=== PATIENT | female | born 1990 | race Caucasian/White ===

== ENCOUNTER 2020-08-10 12:39 | Emergency (ER) | payer OTHER, SELFPAY ==
[2020-08-10 12:44] VITALS: BP 153/57; PULSE 79; RESP 14; TEMP 37; O2SAT 100
[2020-08-10 12:51] VITALS: BP 153/57; PULSE 79; RESP 14; TEMP 37; O2SAT 100
--- NOTE | 2020-08-10 13:00 | ED.DENTAL ---
HPI - Dental/Oral General Chief complaint: Dental/Oral Stated complaint: tooth pain Time Seen by Provider: 08/10/20 12:57 Source: patient and RN notes reviewed Mode of arrival: ambulatory Limitations: no limitations History of Present Illness HPI Narrative: 30-year-old female presents with concern for lower dental pain. Reports she had a cat that fell off, taking most of the tooth with it . Reports there was no pain at that time, however in the last several days the area has become painful with swelling in the lower jaw/chin area. Reports she has been taking ibuprofen. Reports she called her dentist who will see her after she is started on antibiotic. MD Complaint: tooth pain Location: Tooth # (23) Related Data Home Medications Medication Instructions Recorded Confirmed esomeprazole magnesium [Nexium] 20 mg PO DAILY 08/10/20 08/10/20 Allergies Allergy/AdvReac Type Severity Reaction Status Date / Time No Known Allergies Allergy Verified 08/10/20 12:49 Review of Systems Review of Systems: Narrative: CONSTITUTIONAL: Denies malaise, chills, sweats, or fever. EYES: Denies visual changes ENT: Denies rhinorrhea, congestion, sinus pain, otalgia or sore throat. Reports left lower/frontal dental pain, jaw swelling CARDIOVASCULAR: Denies chest pain, palpitations, or edema. RESPIRATORY: Denies cough or dyspnea. GASTROINTESTINAL: Denies abdominal pain, nausea, vomiting SKIN: Denies rash or itching. MUSCULOSKELETAL: Denies myalgia. NEUROLOGIC: Denies headache. All systems reviewed & are unremarkable except as noted in HPI and below PMFSH Past Medical History Medical History (Updated 08/10/20 @ 13:06 by Екатерина Martinez NP) History of gastroesophageal reflux (GERD) Comments At time of signature, agree with nursing past medical, surgical, social and family history. There is no relevant family history pertinent to the presenting complaint Exam Narrative: Exam Narrative: GENERAL: Well-appearing, well-nourished, and in no acute distress. HEAD: Normocephalic, atraumatic. EYES: PERRLA, conjunctivae clear ENT: Nares clear. Mucous membranes moist. Oropharynx without erythema, edema or lesions. Tooth 23 broken, purulent socket noted. No periapical abscess noted NECK: Supple. CHEST: No respiratory distress. Speaks in full sentences. HEART: Regular rate and rhythm. SKIN: Warm, dry, no rash. NEURO: Alert and oriented x3. PSYCH: Normal mood and affect Course Course Emergency Course: Patient is aware of diagnosis, understands and agrees to treatment plan. Anticipatory guidance given. Patient agrees to follow-up as directed and is aware of reasons to seek care at the emergency department. Portions of this record may have been created with voice recognition software Vital Signs Vital signs: Vital Signs Temperature 98.6 F 08/10/20 12:44 Pulse Rate 79 08/10/20 12:44 Respiratory Rate 14 08/10/20 12:44 Blood Pressure 153/57 H 08/10/20 12:44 Pulse Oximetry 100 08/10/20 12:44 Temperature 98.6 F 08/10/20 12:51 Pulse Rate 79 08/10/20 12:51 Respiratory Rate 14 08/10/20 12:51 Blood Pressure 153/57 H 08/10/20 12:51 Pulse Oximetry 100 08/10/20 12:51 Reviewed. MDM - Dental/Oral MDM Narrative Medical decision making narrative: Patients pain and complaint coupled with physical findings are consistant with dentalgia. There are no focal signs of space occupying lesions that are compromising to the airway; no dysphagia, odynophagia, dysphonia, or dyspnea. No uvular deviation or soft palate edema. Patient is non-toxic appearing. The floor of the mouth is soft with no signs of Cecilio's Angina; no induration below mandible, no neck pain. Patient is without trismus or drooling and able to swallow secretions. Patient is felt appropriate for discharge home with dental follow up. Critical Care Time Critical Care Time Critical Care Time: No Discharge Plan Discharge Clinical Impression: Toothache
== END 2020-08-10 13:12 | disposition home or self-care (01) ==
PROVIDERS: Emergency Provider Nurse Practitioner
DX: K08.89 Other specified disorders of teeth and supporting structures (principal); K21.9 Gastro-esophageal reflux disease without esophagitis
CPT/HCPCS: 99213; G0463

== ENCOUNTER 2020-12-22 18:02 | Emergency (ER) | payer OTHER, SELFPAY ==
[2020-12-22 18:15] VITALS: BP 122/60; PULSE 75; RESP 20; TEMP 36.3; O2SAT 98
--- NOTE | 2020-12-22 18:26 | ED.DENTAL ---
HPI - Dental/Oral General Chief complaint: Dental/Oral Stated complaint: tooth infection Time Seen by Provider: 12/22/20 18:21 Source: patient and RN notes reviewed Mode of arrival: ambulatory Limitations: no limitations History of Present Illness HPI Narrative: Patient presents today for evaluation of her tooth. She was seen a few hours ago at the [facility] and was told that she has a dental infection and that she needed to get started on antibiotics. 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 This tooth needs to be pulled and she needs to be on antibiotics for several days prior to going for a return appointment to have the tooth pulled. She currently rates her pain 4/10. Pain has been present for 2 to 3 days. She has been applying Orajel with relief. Denies fever, shortness of breath, difficulty swallowing. MD Complaint: tooth pain Related Data Allergies Allergy/AdvReac Type Severity Reaction Status Date / Time No Known Allergies Allergy Verified 12/22/20 18:22 Review of Systems Review of Systems: Narrative: CONSTITUTIONAL: Denies body aches, fever, chills, or sweats. EYES: Denies visual changes, redness, or discharge. ENT: Denies rhinorrhea, congestion, sore throat, or otalgia.+ Tooth pain CARDIOVASCULAR: Denies chest pain, palpitations, or edema. RESPIRATORY: Denies cough or dyspnea. GASTROINTESTINAL: Denies abdominal pain, nausea, vomiting, or diarrhea. GENITOURINARY: Denies dysuria or hematuria. SKIN: Denies rash, itching, or wounds. MUSCULOSKELETAL: Denies back pain, joint pain, or myalgia. NEUROLOGIC: Denies headache, numbness, tingling, or weakness. PSYCH: Denies depression or anxiety. PMFSH Past Medical History Medical History History of gastroesophageal reflux (GERD) Comments At time of signature, I have reviewed and agree with nursing past medical, surgical, social and family history unless otherwise noted. Please see nursing chart for further information. There is no relevant family history pertinent to the presenting complaint Exam Narrative: Exam Narrative: GENERAL: Well-appearing, well-nourished, and in no acute distress. HEAD: Normocephalic, atraumatic. EYES: EOMI. No redness or drainage. Conjunctivae normal. ENT: Mucous membranes pink and moist. Nares clear. No rhinorrhea. Throat normal. Uvula midline. Dental decay. Tooth #22 is brown in color broken off the gumline. Surrounding gumline is mildly erythematous. NECK: Normal AROM. Supple. No lymphadenopathy. CHEST: No respiratory distress. Clear to auscultation. HEART: Regular rate and rhythm. No murmur appreciated. Normal peripheral pulses. EXTREMITIES: Normal range of motion. No edema. SKIN: Warm, dry, no rash. Capillary refill normal. Normal skin turgor. NEURO: No focal deficits. Alert and oriented x3. Gait steady. PSYCH: Normal affect. No signs of depression or anxiety. Course Vital Signs Vital signs: Vital Signs Temperature 97.3 F L 12/22/20 18:15 Pulse Rate 75 12/22/20 18:15 Respiratory Rate 20 12/22/20 18:15 Blood Pressure 122/60 12/22/20 18:15 Pulse Oximetry 98 12/22/20 18:15 Temperature 97.3 F L 12/22/20 18:15 Pulse Rate 75 12/22/20 18:15 Respiratory Rate 20 12/22/20 18:15 Blood Pressure 122/60 12/22/20 18:15 Pulse Oximetry 98 12/22/20 18:15 Reviewed. Pt has been instructed to follow up with her PCP regarding her elevated blood pressure today. MDM - Dental/Oral Differential Diagnosis Differential diagnosis: Likely gingival abscess, dental caries, toothache, dental abscess and fracture of tooth Critical Care Time Critical Care Time Critical Care Time: No Discharge Plan Discharge Clinical Impression: Dental abscess Patient Disposition: Home, Self-Care Condition: Stable Instructions: Antibiotic Form, Dental A
== END 2020-12-22 18:30 | disposition home or self-care (01) ==
PROVIDERS: Emergency Provider Nurse Practitioner; PCP Internal Medicine
DX: K04.7 Periapical abscess without sinus (principal); K21.9 Gastro-esophageal reflux disease without esophagitis
CPT/HCPCS: 99213; G0463

== ENCOUNTER 2021-04-28 16:05 | Emergency (ER) | payer OTHER, SELFPAY ==
--- NOTE | 2021-04-28 16:12 | ED.DENTAL ---
HPI - Dental/Oral General Chief complaint: Dental/Oral Stated complaint: tooth pain Time Seen by Provider: 04/28/21 16:12 Source: patient and RN notes reviewed Mode of arrival: ambulatory Limitations: no limitations History of Present Illness HPI Narrative: 30-year-old female presents with concern for left lower dental pain for several days. Reports he has a tooth that needs to be pulled, it is broken with cavities. She reports she has had problems with her teeth in the past, has had 2 teeth pulled over the last year. Reports she has an appointment with a dentist, however they suggested she be on antibiotics first. She denies any difficulty swallowing, fever. MD Complaint: tooth pain Related Data Home Medications Medication Instructions Recorded Confirmed esomeprazole magnesium [Nexium] 40 mg PO DAILY 04/28/21 04/28/21 sumatriptan succinate 50 mg PO ONCE PRN 04/28/21 04/28/21 Allergies Allergy/AdvReac Type Severity Reaction Status Date / Time No Known Allergies Allergy Verified 04/28/21 16:16 Review of Systems Review of Systems: CONSTITUTIONAL: Denies malaise, chills, sweats, or fever. ENT: Reports left lower dental pain CARDIOVASCULAR: Denies chest pain, palpitations, or edema. RESPIRATORY: Denies cough or dyspnea. NEUROLOGIC: Denies headache. PSYCHIATRIC: Denies anxiety or depression. All systems reviewed & are unremarkable except as noted in HPI and below PMFSH Past Medical History Medical History History of gastroesophageal reflux (GERD) Comments At time of signature, agree with nursing past medical, surgical, social and family history. There is no relevant family history pertinent to the presenting complaint Exam Narrative: GENERAL: Well-appearing, well-nourished, and in no acute distress. HEAD: Normocephalic, atraumatic. EYES: PERRLA, conjunctivae clear ENT: Nares clear. Mucous membranes moist. Oropharynx without edema, erythema or lesions. NECK: Supple. CHEST: No respiratory distress. Speaks in full sentences. HEART: Regular rate and rhythm. SKIN: Warm, dry, no rash. NEURO: Alert and oriented x3. PSYCH: Normal mood and affect Course Course Emergency Course: Patient is aware of diagnosis, understands and agrees to treatment plan. Anticipatory guidance given. Patient agrees to follow-up as directed and is aware of reasons to seek care at the emergency department. Portions of this record may have been created with voice recognition software Vital Signs Vital signs: Reviewed. MDM - Dental/Oral MDM Narrative Medical decision making narrative: Patients pain and complaint coupled with physical findings are consistant with dentalgia. There are no focal signs of space occupying lesions that are compromising to the airway; no dysphagia, odynophagia, dysphonia, or dyspnea. No uvular deviation or soft palate edema. Patient is non-toxic appearing. The floor of the mouth is soft with no signs of Cecilio's Angina; no induration below mandible, no neck pain. Patient is without trismus or drooling and able to swallow secretions. Patient is felt appropriate for discharge home with dental follow up. Critical Care Time Critical Care Time Critical Care Time: No Discharge Plan Discharge Clinical Impression: Toothache Patient Disposition: Home, Self-Care Condition: Stable Instructions: Antibiotic Form, Toothache (ED) Additional Instructions: Take antibiotic as directed Avoid temperature extremes May apply heat or ice to the face Gentle brushing and flossing Alternate Tylenol and ibuprofen as needed for pain Follow-up with the dentist as soon as possible Prescriptions: New clindamycin HCl 300 mg capsule 300 mg PO Q8H 7 Days Qty: 21 RF: 0 No Action esomeprazole magnesium [Nexium] 40 mg Capsule,Delayed Release(Dr/Ec) 40 mg PO DAILY RF: 0 sumatriptan succinate 50 mg Tablet 50 mg PO ONCE PRN (Reason: Migra
[2021-04-28 16:13] VITALS: BP 127/76; PULSE 80; RESP 20; TEMP 36.6; O2SAT 100
[2021-04-28 16:20] VITALS: BP 127/76; PULSE 80; RESP 20; TEMP 36.6; O2SAT 100
== END 2021-04-28 16:23 | disposition home or self-care (01) ==
PROVIDERS: Emergency Provider Nurse Practitioner
DX: K08.89 Other specified disorders of teeth and supporting structures (principal); K21.9 Gastro-esophageal reflux disease without esophagitis
CPT/HCPCS: 99213; G0463

== ENCOUNTER 2021-05-21 17:52 | Emergency (ER) | payer OTHER, SELFPAY ==
[2021-05-21 18:00] VITALS: BP 119/67; PULSE 77; RESP 20; TEMP 37.1; O2SAT 100
--- NOTE | 2021-05-21 18:01 | ED.FEMALEGU ---
HPI - Female Genitourinary General Chief complaint: Urogenital-Female Stated complaint: Possible UTI Time Seen by Provider: 05/21/21 18:01 Source: patient Mode of arrival: ambulatory Limitations: no limitations History of Present Illness HPI Narrative: Peace Alba is a 30 yo female with a PMH of GERD, migraine headaches , renal calculi,who comes to express care with dysura and possible uti. 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 Started out with frequency and feel like she has to urinate all the time and now she is having pain when she urinates, no fever, no nausea vomiting/diarrhea. Related Data Home Medications Medication Instructions Recorded Confirmed esomeprazole magnesium [Nexium] 40 mg PO DAILY 04/28/21 05/21/21 sumatriptan succinate 50 mg PO ONCE PRN 04/28/21 05/21/21 Allergies Allergy/AdvReac Type Severity Reaction Status Date / Time No Known Allergies Allergy Verified 04/28/21 16:16 Review of Systems Review of Systems: CONSTITUTIONAL: Denies fever, chills, sweats. EYES: Denies visual changes, redness, discharge. ENT: Denies rhinorrhea, congestion, sore throat, otalgia. CARDIOVASCULAR: Denies chest pain, palpitations, edema. RESPIRATORY: Denies dyspnea, wheezing, cough GASTROINTESTINAL: Denies abdominal pain, nausea, vomiting, diarrhea. GENITOURINARY: has dysuria, hematuria, abnormal discharge SKIN: Denies rash or itching. NEUROLOGIC: Denies numbness, or focal weakness. PSYCHIATRIC: Denies anxiety or depression. [facility] Past Medical History Medical History (Updated 05/21/21 @ 18:25 by Angélica Concepcion CNP) History of gastroesophageal reflux (GERD) Migraine Family History Family History (Updated 05/21/21 @ 18:22 by Angélica Concepcion CNP) Other No chronic problems Social History Social History (Updated 05/21/21 @ 18:22 by Angélica Concepcion CNP) Smoking status: Never smoker Alcohol intake: current Comments At time of signature, I agree with nursing past medical, surgical, social and family history. There is no relevant family history pertinent to the presenting complaint. Exam Narrative: GENERAL: This is a well-nourished, well-developed patient, in mild distress. HEAD: normocephalic, atraumatic. EYES: Sclera clear/white. Vision is grossly intact. EARS: External ears normal, Hearing grossly intact. NOSE: External nose normal without nasal discharge, nares without redness, no rhinorrhea. THROAT: Mucous membranes moist, NECK: Neck supple, CARDIOVASCULAR: Regular rate and rhythm without murmurs, gallops, or rubs. RESPIRATORY: Clear to auscultation. Breath sounds equal bilaterally. No wheezes, rales, or rhonchi. GASTROINTESTINAL: Abdomen soft, non-tender, SKIN: warm, intact with no suspicious lesions or rash, good texture and turgor. NEURO: awake, alert, and oriented to person, place and time. There were no obvious focal neurologic abnormalities. Steady gait EXTREMITIES: Normal range of motion. BACK: Nontender without deformity Course Course Emergency Course: Patient here with 5 days symptoms of dysuria that started as difficulty with frequency and voiding of that and is now having pain on urination UA shows 1+ blood 1+ leuks 1+ protein all else is negative Right on cephalexin 500 mg 1 twice daily x7 days also given Diflucan for after antibiotic if has vaginal itching Vital Signs Vital signs: Vital Signs Temperature 98.8 F 05/21/21 18:00 Pulse Rate 77 05/21/21 18:00 Respiratory Rate 20 05/21/21 18:00 Blood Pressure 119/67 05/21/21 18:00 Pulse Oximetry 100 05/21/21 18:00 Temperature 98.8 F 05/21/21 18:10 Pulse Rate 77 05/21/21 18:10 Respiratory Rate 20 05/21/21 18:10 Blood Pressure 119/67 05/21/21 18:10 Pulse Oximetry 100 05/21/21 18:10 MDM - Female Genitourinary Differential Diagnosis Differential diagnosis: Likely urinary tract infection, vaginitis, cystitis and other (
[2021-05-21 18:10] VITALS: BP 119/67; PULSE 77; RESP 20; TEMP 37.1; O2SAT 100
== END 2021-05-21 18:30 | disposition home or self-care (01) ==
PROVIDERS: Emergency Provider Nurse Practitioner
DX: N30.90 Cystitis, unspecified without hematuria (principal)
CPT/HCPCS: 81003; 87077; 87086; 87088; 87186; 99213; G0463